=== PATIENT | female | born 1940 | race Caucasian/White ===

== ENCOUNTER 2022-05-01 21:31 | Inpatient (IN) | payer MEDICARE ==
[~2022-05-01] VITALS: Ht 149.9 cm; Wt 59.0 kg
[2022-05-01] MEDS ORDERED: IV NORMAL SALINE 500 ML BAG IV ONE (21:45)
[2022-05-01] MEDS ORDERED: MORPHINE SULFATE 4 MG/1 ML DISP.SYRIN IV ONE (22:00)
[2022-05-01 22:01] LABS: HEMATOCRIT 40.7 % (31.2-41.9); MEAN CORPUSCULAR VOLUME 78.9 fL (75.5-95.3); PLATELET COUNT (AUTO) 381 K/uL (179-408)
[2022-05-01] MEDS ORDERED: MORPHINE SULFATE 4 MG/1 ML DISP.SYRIN ONE (22:02)
[2022-05-01 22:19] LABS: CARBON DIOXIDE 27 mmol/L (21-32); CHLORIDE 102 mmol/L (98-107); CREATININE 0.5 mg/dL (0.6-1.3); GLUCOSE 165 mg/dL (74-106); POTASSIUM 3.8 mmol/L (3.5-5.1); UREA NITROGEN, BLOOD 10 mg/dL (7-18)
[2022-05-01 22:25] LABS: ALANINE AMINOTRANSFERASE 31 U/L (14-59); ALKALINE PHOSPHATASE 137 U/L (50-136); ASPARTATE AMINOTRANSFERASE 27 U/L (15-37); BILIRUBIN,TOTAL 0.3 mg/dL (0.2-1.0); TOTAL PROTEIN, SERUM 7.2 g/dL (6.4-8.2)
[2022-05-01] MEDS ORDERED: MORPHINE SULFATE 2 MG/1 ML DISP.SYRIN ONE (23:44)
[2022-05-01] MEDS ORDERED: MORPHINE SULFATE 2 MG/1 ML DISP.SYRIN IV ONE (23:45)
[2022-05-02] MEDS ORDERED: ONDANSETRON 4 MG/2 ML VIAL IV PRN (00:30)
[2022-05-02] MEDS ORDERED: ACETAMINOPHEN 325 MG TABLET PO PRN (00:30)
[2022-05-02] MEDS ORDERED: hydrALAZINE HCL 20 MG/1 ML VIAL IV PRN (00:30)
[2022-05-02] MEDS ORDERED: IV NS 1000 ML 1,000 ML IV SCH (00:30)
[2022-05-02] MEDS ORDERED: hydrALAZINE HCL 20 MG/1 ML VIAL IV ONE (01:15)
[2022-05-02] MEDS ORDERED: FENTANYL CITRATE 100 MCG/2 ML AMPUL ONE ×2 (01:54→13:36)
[2022-05-02] MEDS ORDERED: FENTANYL CITRATE 100 MCG/2 ML AMPUL IV PRN (02:00)
[2022-05-02] MEDS: MORPHINE SULFATE 2 MG/1 ML DISP.SYRIN IVP PRN ×2 (03:52→07:48)
[2022-05-02 04:00] VITALS: BP 158/86
[2022-05-02] MEDS ORDERED: MORPHINE SULFATE 2 MG/1 ML DISP.SYRIN IVP PRN (11:00)
[2022-05-02] MEDS ORDERED: VANCOMYCIN 1000 MG VIAL ONE (11:45)
[2022-05-02] MEDS ORDERED: BUPIVACAINE PF 0.5% 30 ML VIAL ONE ×2 (11:49→13:36)
[2022-05-02] MEDS ORDERED: IV D5 1/2 NS 1000 ML 1,000 ML IV PRN (12:15)
[2022-05-02] MEDS ORDERED: DEXTROSE 50% 50 ML DISP.SYRIN IV PRN (12:15)
[2022-05-02] MEDS ORDERED: METOCLOPRAMIDE HCL 10 MG/2 ML VIAL ONE (13:00)
[2022-05-02] MEDS ORDERED: CEFAZOLIN 1 G VIAL ONE ×2 (13:00)
[2022-05-02] MEDS ORDERED: PROPOFOL 200 MG/20 ML BOTTLE ONE (13:00)
[2022-05-02] MEDS ORDERED: DEXAMETHASONE SOD PHOSPHATE 4 MG INJ ONE (13:00)
[2022-05-02] MEDS ORDERED: GLYCOPYRROLATE 0.2 MG/ML VIAL ONE (13:00)
[2022-05-02] MEDS ORDERED: ONDANSETRON 4 MG/2 ML VIAL ONE (13:00)
[2022-05-02] MEDS ORDERED: LIDOCAINE-MPF 2% 5 ML VIAL ONE ×2 (13:00)
[2022-05-02] MEDS ORDERED: PHENYLEPHRINE 10 MG/1 ML VIAL ONE (13:00)
[2022-05-02] MEDS ORDERED: ALBUTEROL SULFATE 8 GM HFA.AER.AD ONE (13:31)
[2022-05-02] MEDS ORDERED: MINERAL OIL/PETROLAT OPHT OINT 3.5 GM TUBE ONE (13:35)
[2022-05-02] MEDS ORDERED: FAMOTIDINE. 20 MG/2 ML VIAL IV ONE (13:36)
[2022-05-02] MEDS ORDERED: ROCURONIUM BROMIDE 50 MG/5 ML VIAL ONE (13:36)
[2022-05-02] MEDS ORDERED: SEVOFLURANE 250 ML BOTTLE ONE (14:07)
[2022-05-02] MEDS ORDERED: TRANEXAMIC ACID 1,000 MG/10 ML VIAL ONE (14:12)
[2022-05-02] MEDS ORDERED: MAGNESIUM SULFATE/D5W 200 ML ONE (14:17)
[2022-05-02] MEDS: BLOOD SUGAR DIAGNOSTIC 1 EACH STRIP VI SCH ×2 (17:23→20:47)
[2022-05-02] MEDS: INSULIN REGULAR, HUMAN 300 UNIT/3 ML VIAL SQ PRN ×2 (17:27→20:50)
[2022-05-02] MEDS: IV D5W-0.45% NS +20 KCL 1,000 ML IV PRN (17:29)
[2022-05-02] MEDS: MORPHINE SULFATE 4 MG/1 ML DISP.SYRIN IV PRN (18:24)
[2022-05-02 20:00] VITALS: BP 130/49
[2022-05-02] MEDS: CEFAZOLIN 1 G in IV DEXTROSE 5% 50 ML IV SCH (21:07)
[2022-05-03 04:00] VITALS: BP 137/42
[2022-05-03] MEDS: IV D5W-0.45% NS +20 KCL 1,000 ML IV PRN (04:35)
[2022-05-03] MEDS: CEFAZOLIN 1 G in IV DEXTROSE 5% 50 ML IV SCH (05:46)
[2022-05-03] MEDS: MORPHINE SULFATE 4 MG/1 ML DISP.SYRIN IV PRN ×3 (05:49→17:43)
[2022-05-03 06:27] LABS: MEAN CORPUSCULAR HEMOGLOBIN 24.6 uug (24.7-32.8); MEAN CORPUSCULAR VOLUME 78.9 fL (75.5-95.3); PLATELET COUNT (AUTO) 313 K/uL (179-408)
[2022-05-03 06:34] LABS: ALANINE AMINOTRANSFERASE 23 U/L (14-59); ALKALINE PHOSPHATASE 112 U/L (50-136); ASPARTATE AMINOTRANSFERASE 29 U/L (15-37); BILIRUBIN,TOTAL 0.2 mg/dL (0.2-1.0); CARBON DIOXIDE 24 mmol/L (21-32); CHLORIDE 103 mmol/L (98-107); CREATININE 0.5 mg/dL (0.6-1.3); GLUCOSE 158 mg/dL (74-106); PHOSPHOROUS 2.7 mg/dL (2.5-4.9); POTASSIUM 4.1 mmol/L (3.5-5.1); TOTAL PROTEIN, SERUM 6.1 g/dL (6.4-8.2); UREA NITROGEN, BLOOD 9 mg/dL (7-18)
[2022-05-03] MEDS: BLOOD SUGAR DIAGNOSTIC 1 EACH STRIP VI SCH ×4 (07:07→21:04)
[2022-05-03] MEDS: INSULIN REGULAR, HUMAN 300 UNIT/3 ML VIAL SQ PRN ×4 (07:45→21:02)
[2022-05-03] MEDS: HEPARIN SODIUM,PORCINE 5,000 UNITS/ML VIAL SQ SCH ×2 (08:29→21:04)
[2022-05-03 11:49] VITALS: BP 148/51
[2022-05-03 16:00] VITALS: BP 136/48
[2022-05-03] MEDS: HYDROCODONE/APAP 10-325 MG TABLET PO PRN ×2 (18:39→23:31)
[2022-05-03 20:00] VITALS: BP 152/49
[2022-05-04] MEDS: MORPHINE SULFATE 4 MG/1 ML DISP.SYRIN IV PRN ×3 (02:25→11:22)
[2022-05-04 04:00] VITALS: BP 166/63
[2022-05-04 06:00] VITALS: BP 144/48
[2022-05-04] MEDS: BLOOD SUGAR DIAGNOSTIC 1 EACH STRIP VI SCH ×2 (07:02→11:30)
[2022-05-04] MEDS: HEPARIN SODIUM,PORCINE 5,000 UNITS/ML VIAL SQ SCH (08:45)
[2022-05-04 12:00] VITALS: BP 148/61
[2022-05-04] MEDS ORDERED: Morphine Sulfate Inj IV (12:01)
[2022-05-04] MEDS ORDERED: HEPA50007 SQ (12:01)
[2022-05-04] MEDS ORDERED: HYDR-3980 PO (12:01)
[2022-05-04] MEDS ORDERED: INSU100V7 SQ (12:01)
[2022-05-04] MEDS ORDERED: ONDA4VIA23 IV (12:01)
[2022-05-04] MEDS: HYDROCODONE/APAP 10-325 MG TABLET PO PRN (13:32)
[2022-05-04] MEDS: INSULIN REGULAR, HUMAN 300 UNIT/3 ML VIAL SQ PRN (13:32)
[2022-05-04] MEDS ORDERED: ACET-2154 PO (15:52)
[2022-05-04] MEDS ORDERED: HYDR-4075 PO (15:53)
[2022-05-04 16:00] VITALS: BP 139/53
[2022-05-04] MEDS ORDERED: ROSU20TA32 PO (16:12)
[2022-05-04] MEDS ORDERED: CARV12.52 PO (16:12)
[2022-05-04] MEDS ORDERED: PRIM50TA27 PO (16:12)
[2022-05-04] MEDS ORDERED: LORA-258 PO (16:12)
[2022-05-04] MEDS ORDERED: CLOP75TA15 PO (16:12)
[2022-05-04] MEDS ORDERED: OLME20TA13 PO (16:12)
[2022-05-04] MEDS ORDERED: PROP40TA7 PO (16:12)
[2022-05-04] MEDS ORDERED: HYDR-3972 PO (16:12)
[2022-05-04] MEDS ORDERED: ESCI20TA PO (16:12)
[2022-05-04] MEDS ORDERED: AMLO10TA59 PO (16:12)
== END 2022-05-04 14:13 | DRG 522 ==
LOC: ER 21:31 → MEDSURG3 05-02 00:40
PROVIDERS: ADMIT Internal Medicine; ATTEND Nurse Practitioner Acute Care
PROC: 0SRS0JA Replacement of Left Hip Joint, Femoral Surface with Synthetic Substitute, Uncemented, Open Approach (ICD-10-PCS; principal; 2022-05-02)
DX: S72.032A Displaced midcervical fracture of left femur, initial encounter for closed fracture (principal); M32.9 Systemic lupus erythematosus, unspecified; W01.0XXA Fall on same level from slipping, tripping and stumbling without subsequent striking against object, initial encounter; Y92.010 Kitchen of single-family (private) house as the place of occurrence of the external cause; I25.10 Atherosclerotic heart disease of native coronary artery without angina pectoris; I10 Essential (primary) hypertension; E66.9 Obesity, unspecified; E78.5 Hyperlipidemia, unspecified; E11.9 Type 2 diabetes mellitus without complications; Z95.5 Presence of coronary angioplasty implant and graft; Z20.822 Contact with and (suspected) exposure to COVID-19; Z74.09 Other reduced mobility
CPT/HCPCS: 36415; 70450; 71045; 72125; 73501; 73521; 73551; 84100; 84484; 85025; 85730; 93005; 93307; A4649; A6213; C1776; G0378; J0360; J0690; J1100; J1644; J1815; J2270; J2370; J2405; J2765; J3010; J3370; J3475; J3490; J3535; J7040; J7120

== ENCOUNTER 2022-05-03 13:49 | Inpatient (IN) | payer MEDICARE ==
[~2022-05-03] VITALS: Ht 149.9 cm; Wt 59.0 kg
[2022-05-04] MEDS ORDERED: HYDR-3980 PO (12:01)
[2022-05-04] MEDS ORDERED: INSU100V7 SQ (12:01)
[2022-05-04] MEDS ORDERED: Morphine Sulfate Inj IV (12:01)
[2022-05-04] MEDS ORDERED: ONDA4VIA23 IV (12:01)
[2022-05-04] MEDS ORDERED: HEPA50007 SQ (12:01)
[2022-05-04] MEDS ORDERED: ACET-2154 PO (15:52)
[2022-05-04] MEDS ORDERED: HYDR-4075 PO (15:53)
[2022-05-04] MEDS ORDERED: DEXTROSE 50% 50 ML DISP.SYRIN IV PRN (16:00)
[2022-05-04] MEDS ORDERED: PROP40TA7 PO (16:12)
[2022-05-04] MEDS ORDERED: ESCI20TA PO (16:12)
[2022-05-04] MEDS ORDERED: LORA-258 PO (16:12)
[2022-05-04] MEDS ORDERED: CARV12.52 PO (16:12)
[2022-05-04] MEDS ORDERED: ROSU20TA32 PO (16:12)
[2022-05-04] MEDS ORDERED: CLOP75TA15 PO (16:12)
[2022-05-04] MEDS ORDERED: AMLO10TA59 PO (16:12)
[2022-05-04] MEDS ORDERED: PRIM50TA27 PO (16:12)
[2022-05-04] MEDS ORDERED: HYDR-3972 PO (16:12)
[2022-05-04] MEDS ORDERED: OLME20TA13 PO (16:12)
[2022-05-04] MEDS: BLOOD SUGAR DIAGNOSTIC 1 EACH STRIP VI SCH ×2 (16:30→20:59)
--- NOTE | 2022-05-04 17:43 | NUR ---
verbal order obtained from dr whiteside for OxyContin 10mg every six hours, read back the order and made sure that its OxyContin 10mg every six hour scheduled and oxy ir 15mg every six hours as needed for pain.
[2022-05-04] MEDS ORDERED: NALOXONE HCL 0.4 MG/ML AMPUL IV PRN (17:45)
[2022-05-04] MEDS ORDERED: OXYCODONE HCL 10 MG TAB.SR.12H PO SCH (18:00)
--- NOTE | 2022-05-04 18:00 | NUR ---
pt was discharge from med surg and re admit in ARU.
[2022-05-04] MEDS: INSULIN REGULAR, HUMAN 300 UNIT/3 ML VIAL SQ PRN ×2 (18:06→21:17)
--- NOTE | 2022-05-04 18:08 | NUR ---
changed OxyContin 10mg every 8 hours as ordered by dr whiteside
--- NOTE | 2022-05-04 19:30 | NUR ---
buttock on elia buttocks noted . pt states she scratch it. wound care consult order. applied zuard and optiform for protection.
[2022-05-04 20:18] VITALS: BP 133/56
[2022-05-04] MEDS: DOCUSATE SODIUM 100 MG CAPSULE PO SCH (20:54)
[2022-05-04] MEDS: OXYCODONE HCL 10 MG TAB.SR.12H PO SCH (21:13)
[2022-05-04] MEDS: MIRALAX 17 GM POWD.PACK PO SCH (21:21)
[2022-05-05 04:00] VITALS: BP 140/65
[2022-05-05] MEDS: OXYCODONE HCL 10 MG TAB.SR.12H PO SCH ×3 (05:44→21:04)
--- NOTE | 2022-05-05 05:57 | NUR ---
AAOx3-4 All needs attended and met. VSS No acute distress noted. Left hip dressing intact. Pain meds givens as scheduled. Tolerated well. Incontinent of bowel and bladder. No BM this shift. Kept comfortable. Fall precautions maintained.
[2022-05-05] MEDS: BLOOD SUGAR DIAGNOSTIC 1 EACH STRIP VI SCH ×4 (06:32→21:04)
--- NOTE | 2022-05-05 07:35 | NUR ---
Incontinent of urine. Kept clean and dry. Offered purewick, patient refused.
[2022-05-05 08:00] VITALS: BP 115/61
[2022-05-05] MEDS: INSULIN REGULAR, HUMAN 300 UNIT/3 ML VIAL SQ PRN ×3 (08:18→16:56)
[2022-05-05] MEDS: DOCUSATE SODIUM 100 MG CAPSULE PO SCH ×2 (08:19→20:56)
[2022-05-05] MEDS: MIRALAX 17 GM POWD.PACK PO SCH (08:19)
[2022-05-05] MEDS: OXYCODONE HCL 5 MG TABLET PO PRN ×2 (08:27→15:14)
[2022-05-05] MEDS: PRIMIDONE 50 MG TABLET PO SCH (15:07)
[2022-05-05 15:39] VITALS: BP 125/59
[2022-05-05] MEDS: PROPRANOLOL HCL 40 MG TABLET PO SCH (16:35)
[2022-05-05] MEDS: CARVEDILOL 6.25 MG TABLET PO SCH (17:02)
[2022-05-05 20:00] VITALS: BP 126/49
[2022-05-05] MEDS: HEPARIN SODIUM,PORCINE 5,000 UNITS/ML VIAL SQ SCH (20:53)
[2022-05-05] MEDS: INSULIN GLARGINE,HUM 300 UNITS/3 ML CARTRIDGE SQ SCH (20:54)
[2022-05-05] MEDS: ESCITALOPRAM OXALATE 10 MG TABLET PO SCH (20:56)
[2022-05-05] MEDS: ATORVASTATIN 40 MG TABLET PO SCH (20:56)
[2022-05-06 04:00] VITALS: BP 150/44
[2022-05-06 05:18] LABS: *BLOOD, URINE NEGATIVE (NEGATIVE); *CLARITY,URINE CLEAR (CLEAR); *COLOR,URINE YELLOW (YELLOW); *KETONES,URINE TRACE (NEGATIVE); *UROBILINOGEN,URINE 0.2 E.U./dl (NORMAL); LEUKOCYTE ESTERASE ,URINE NEGATIVE (NEGATIVE); NITRITE, URINE NEGATIVE (NEGATIVE); PH,URINE 5.5 (5.0-8.0); UGLUCOSE NEGATIVE (NEGATIVE)
[2022-05-06 05:19] LABS: *BILIRUBIN,URIN 1+ (NEGATIVE)
[2022-05-06] MEDS: OXYCODONE HCL 10 MG TAB.SR.12H PO SCH (06:33)
[2022-05-06 06:49] LABS: HEMATOCRIT 33.4 % (31.2-41.9); MEAN CORPUSCULAR HEMOGLOBIN 24.6 uug (24.7-32.8); MEAN CORPUSCULAR VOLUME 79.3 fL (75.5-95.3); PLATELET COUNT (AUTO) 301 K/uL (179-408)
[2022-05-06] MEDS: BLOOD SUGAR DIAGNOSTIC 1 EACH STRIP VI SCH ×4 (06:54→20:53)
--- NOTE | 2022-05-06 07:25 | NUR ---
REPORT GIVEN TO KASSANDRA MEJÍA
[2022-05-06 07:26] VITALS: BP 152/50
[2022-05-06 07:38] LABS: CARBON DIOXIDE 28 mmol/L (21-32); CHLORIDE 100 mmol/L (98-107); CREATININE 0.6 mg/dL (0.6-1.3); GLUCOSE 146 mg/dL (74-106); MAGNESIUM 1.5 mg/dL (1.8-2.4); PHOSPHOROUS 4.3 mg/dL (2.5-4.9); POTASSIUM 4.6 mmol/L (3.5-5.1); UREA NITROGEN, BLOOD 24 mg/dL (7-18)
[2022-05-06] MEDS: DOCUSATE SODIUM 100 MG CAPSULE PO SCH ×2 (08:09→20:54)
[2022-05-06] MEDS: MIRALAX 17 GM POWD.PACK PO SCH (08:09)
[2022-05-06] MEDS: PRIMIDONE 50 MG TABLET PO SCH ×2 (08:10→16:31)
[2022-05-06] MEDS: AMLODIPINE 5 MG TABLET PO SCH (08:10)
[2022-05-06] MEDS: CARVEDILOL 6.25 MG TABLET PO SCH ×2 (08:10→18:23)
[2022-05-06] MEDS: CLOPIDOGREL 75 MG TABLET PO SCH (08:10)
[2022-05-06] MEDS: PROPRANOLOL HCL 40 MG TABLET PO SCH ×2 (08:10→16:31)
[2022-05-06] MEDS: HEPARIN SODIUM,PORCINE 5,000 UNITS/ML VIAL SQ SCH ×2 (08:13→20:55)
[2022-05-06] MEDS: INSULIN REGULAR, HUMAN 300 UNIT/3 ML VIAL SQ PRN ×3 (08:14→20:58)
[2022-05-06] MEDS: OXYCODONE HCL 5 MG TABLET PO PRN ×2 (10:02→18:48)
--- NOTE | 2022-05-06 10:11 | NUR ---
Notified Qamar Ramirez NP of the UA results. He is now aware.
[2022-05-06] MEDS ORDERED: MAGNESIUM OXIDE 400 MG TABLET PO ONE (11:00)
--- NOTE | 2022-05-06 11:32 | NUR ---
Pt is still downstairs with PT at this time. Will check her blood sugar as soon as she returns.
[2022-05-06] MEDS ORDERED: NALOXONE HCL 0.4 MG/ML AMPUL IV PRN (13:00)
--- NOTE | 2022-05-06 13:25 | NUR ---
WOUND CARE CONSULT: PT PRESENTS WITH MOISTURE ASSOCIATED SKIN DAMAGE TO BUTTOCKS, PRESENT ON ADMISSION. RECOMMENDATIONS MADE FOR SKIN CARE AND PROTECTION. DISCUSSED WITH NURSING STAFF. IN AGREEMENT WITH PLAN OF CARE. Addendum: 05/06/22 at 1326 by CRISTOPHER GAN RN Amended: Links added.
[2022-05-06] MEDS ORDERED: REMEDY ESSENTIAL ZINC PASTE 113 GM TOP PRN (13:30)
--- NOTE | 2022-05-06 13:45 | NUR ---
Pt's 2 friends at bedside, stated they are concerned pt isn't being bathed enough. Per Wound Care Nurse Sophy, she wiped the patient's back with a clean towel and showed the friends that the pt was not dirty. I assured them the pt is being cleaned properly. I added that the pt has been in a lot of pain. One friend suggested I not listen to the pt when she says she is in pain. I informed her that pain is whatever a pt says it is. She verbalized understanding. I called Es, PT/OT and scheduled a chair shower for tomorrow mid morning.
[2022-05-06] MEDS: REMEDY ESSENTIAL ZINC PASTE 113 GM TOP SCH ×2 (13:59→21:08)
[2022-05-06] MEDS: OXYCODONE HCL 20 MG TAB.SR.12H PO SCH ×2 (14:39→22:00)
[2022-05-06 15:18] VITALS: BP 109/49
[2022-05-06 20:30] VITALS: BP 104/35
[2022-05-06] MEDS: ATORVASTATIN 40 MG TABLET PO SCH (20:54)
[2022-05-06] MEDS: ESCITALOPRAM OXALATE 10 MG TABLET PO SCH (20:54)
[2022-05-06] MEDS: INSULIN GLARGINE,HUM 300 UNITS/3 ML CARTRIDGE SQ SCH (21:07)
[2022-05-07 04:25] VITALS: BP 157/49
[2022-05-07] MEDS: OXYCODONE HCL 20 MG TAB.SR.12H PO SCH ×3 (05:17→21:20)
--- NOTE | 2022-05-07 06:48 | NUR ---
Slept intermittently, easy to arouse alert and able to relate needs to staff. Refused to take oxycodone due @ 2200, stated "I don't need it for now". Offered dulcolax suppository, she also refused. Abduction pillow in placed. Left hip incision dressing dry and intact. Needs assessed and attended to.
[2022-05-07] MEDS: BLOOD SUGAR DIAGNOSTIC 1 EACH STRIP VI SCH ×4 (07:39→21:26)
[2022-05-07 07:42] LABS: CARBON DIOXIDE 30 mmol/L (21-32); CHLORIDE 98 mmol/L (98-107); CREATININE 0.5 mg/dL (0.6-1.3); GLUCOSE 133 mg/dL (74-106); MAGNESIUM 1.6 mg/dL (1.8-2.4); POTASSIUM 4.6 mmol/L (3.5-5.1); UREA NITROGEN, BLOOD 34 mg/dL (7-18)
[2022-05-07 07:49] VITALS: BP 138/40
[2022-05-07] MEDS: INSULIN REGULAR, HUMAN 300 UNIT/3 ML VIAL SQ PRN ×3 (07:56→21:29)
[2022-05-07] MEDS: CARVEDILOL 6.25 MG TABLET PO SCH ×2 (08:00→17:14)
[2022-05-07] MEDS: PROPRANOLOL HCL 40 MG TABLET PO SCH ×2 (09:00→17:14)
[2022-05-07] MEDS: MAGNESIUM OXIDE 400 MG TABLET PO SCH ×2 (09:08→17:14)
[2022-05-07] MEDS: MIRALAX 17 GM POWD.PACK PO SCH (09:08)
[2022-05-07] MEDS: CLOPIDOGREL 75 MG TABLET PO SCH (09:08)
[2022-05-07] MEDS: OXYCODONE HCL 5 MG TABLET PO PRN (09:09)
[2022-05-07] MEDS: PRIMIDONE 50 MG TABLET PO SCH ×2 (09:09→17:14)
[2022-05-07] MEDS: DOCUSATE SODIUM 100 MG CAPSULE PO SCH ×2 (09:10→21:17)
[2022-05-07] MEDS: HEPARIN SODIUM,PORCINE 5,000 UNITS/ML VIAL SQ SCH ×2 (09:12→21:35)
--- NOTE | 2022-05-07 09:16 | NUR ---
INDIVIDUALIZED PLAN OF CARE
[2022-05-07] MEDS: AMLODIPINE 5 MG TABLET PO SCH (09:20)
[2022-05-07] MEDS: REMEDY ESSENTIAL ZINC PASTE 113 GM TOP SCH ×2 (09:32→21:17)
[2022-05-07 15:33] VITALS: BP 137/42
--- NOTE | 2022-05-07 17:00 | NUR ---
RECEIVED REPORT FROM KASSANDRA CELAYA, NOC SHIFT RN. PATIENT IS ALERT & ORIENTED X4, AND ABLE TO SPEAK MALAYSIAN. VITAL SIGNS STABLE. PATIENT PARTICIPATES WITH PHYSICAL THERAPY AND OCCUPATIONAL THERAPY PER SCHEDULED. PATIENT TOLERATES PO MEDICATIONS AND DIET WELL. PATIENT HAS COMPLAINT OF PAIN. RN GAVE MEDICATIONS ORDERED BY MD. PATIENT EXPRESSED A RELIEF OF SOME PAIN. PATIENT'S VISITED. SHOWER COMPLETED. CALL LIGHT WITHIN REACH. FALL PRECAUTIONS OBSERVED. ALL NEEDS MET AT THIS TIME. AT 1700, RN ENDORSED CARE TO KASSANDRA ALLEN, FOR CONTINUATION OF CARE PER NUCLEAR POWERPLANT MECHANIC REQUEST.
[2022-05-07] MEDS: GLUCERNA SHAKE 237 ML CAN PO SCH (17:15)
--- NOTE | 2022-05-07 17:56 | NUR ---
1700-Patient was endorsed to me at this time. Upon rounds patient is in bed, awake. A/ox4, able to make self understood and follow directions. Patient denies pain at this time. No s/s of hypo/HTN or hypo/hyperglycemia noted. FS for BS checks done as ordered by MD. SS insulin coverage administered as indicated. Encouraged patient to use call light for help every time needed with good understanding.
--- NOTE | 2022-05-07 19:16 | NUR ---
Patient in stable conditions, resting in bed, awake and watching tv. denies pain. Assist as needed. Needs anticipated and met. Bedside table at reach with all needed items in place. Call light within reach, report given to NOC clive RN.
[2022-05-07] MEDS: ESCITALOPRAM OXALATE 10 MG TABLET PO SCH (21:17)
[2022-05-07] MEDS: ATORVASTATIN 40 MG TABLET PO SCH (21:17)
[2022-05-07] MEDS: INSULIN GLARGINE,HUM 300 UNITS/3 ML CARTRIDGE SQ SCH (21:31)
[2022-05-08 04:00] VITALS: BP 143/45
[2022-05-08] MEDS: OXYCODONE HCL 20 MG TAB.SR.12H PO SCH ×2 (05:57→13:20)
--- NOTE | 2022-05-08 05:57 | NUR ---
Awake alert and oriented x 1-2 Confused but able to follow commands. VSS No acute distress noted. Fall precautions maintained. Needs attended. Able to make needs known. Tolerated po meds well. Kept comfortable. Incontinent of urine x2. Kept clean and dry. No BM noted this shift. Will monitor patient. Addendum: 05/08/22 at 0629 by MELL DURON RN wrong patient
--- NOTE | 2022-05-08 06:32 | NUR ---
AAOx4 All needs attended. Left hip dressing intact, with cecilia in placed. No redness noted or swelling noted. Pain meds given as needed. VSS, Accucheck 67, OJ given. Will recheck blood sugar in 3o minutes. latest accucheck 113.
[2022-05-08] MEDS: BLOOD SUGAR DIAGNOSTIC 1 EACH STRIP VI SCH ×4 (06:47→21:18)
--- NOTE | 2022-05-08 07:54 | NUR ---
0700-Patient in bed, asleep, no s/s of respiratory distress, able to wake up on verbal commands, denies pain. Encouraged to use call light for help every time needed.
[2022-05-08] MEDS: HEPARIN SODIUM,PORCINE 5,000 UNITS/ML VIAL SQ SCH ×2 (08:50→21:29)
[2022-05-08] MEDS: CARVEDILOL 6.25 MG TABLET PO SCH ×2 (08:51→18:10)
[2022-05-08] MEDS: OXYCODONE HCL 5 MG TABLET PO PRN (08:51)
[2022-05-08] MEDS: AMLODIPINE 5 MG TABLET PO SCH (08:51)
[2022-05-08] MEDS: CLOPIDOGREL 75 MG TABLET PO SCH (08:51)
[2022-05-08] MEDS: PROPRANOLOL HCL 40 MG TABLET PO SCH ×2 (08:51→16:31)
[2022-05-08] MEDS: DOCUSATE SODIUM 100 MG CAPSULE PO SCH ×2 (08:51→21:12)
[2022-05-08] MEDS: MAGNESIUM OXIDE 400 MG TABLET PO SCH ×2 (08:51→16:31)
[2022-05-08] MEDS: MIRALAX 17 GM POWD.PACK PO SCH (08:52)
[2022-05-08] MEDS: GLUCERNA SHAKE 237 ML CAN PO SCH ×2 (08:52→17:09)
[2022-05-08] MEDS: PRIMIDONE 50 MG TABLET PO SCH ×2 (08:53→16:31)
[2022-05-08] MEDS: REMEDY ESSENTIAL ZINC PASTE 113 GM TOP SCH ×2 (09:52→21:19)
[2022-05-08 12:00] VITALS: BP 132/40
--- NOTE | 2022-05-08 12:54 | NUR ---
PATIENT SEEN AND EXAMINED BY Dr. IRIZARRY, PER MD TO DECREASE MEDICATION ORXYIR FROM 15mg Q6HRS PRN TO 10mg Q6HRS PRN. ORDER NOTED AND CARRIED OUT.
--- NOTE | 2022-05-08 13:11 | NUR ---
INTERDISCIPLINARY TEAM CONFERENCE
--- NOTE | 2022-05-08 13:35 | NUR ---
X-RAY OF LEFT HIP OBTAINED FROM Dr IRIZARRY, ROUTINE FOLLOW UP.
[2022-05-08 16:00] VITALS: BP 130/49
--- NOTE | 2022-05-08 17:42 | NUR ---
X-RAY OF LEFT HIP RESULTS REC'D AND RELAYED TO Dr. IRIZARRY WITH NO NEW ORDERS. PATIENT'S SON (OKSANA)VISITED PATIENT AND CONCERNED REGARDING PATIENT'S NARCOTIC MEDICATIONS, OKSANA'S CONCERNS WERE RELAYED TO DR. IRIZARRY AND PER DR IRIZARRY TO DECREASE OXYCONTIN FROM 20MG Q8HRS TO OXYCONTIN 10MG Q8HRS NOTED AND CARRIED OUT. DR. GARY MAKING ROUNDS AT THIS TIME, ALSO SPOKE TO OKSANA AND ADDRESSED ALL HIS CONCERNS.
[2022-05-08] MEDS ORDERED: NALOXONE HCL 0.4 MG/ML AMPUL IV PRN (17:45)
[2022-05-08] MEDS: INSULIN REGULAR, HUMAN 300 UNIT/3 ML VIAL SQ PRN ×2 (18:49→21:32)
[2022-05-08 20:00] VITALS: BP 142/47
[2022-05-08] MEDS ORDERED: BISACODYL 10 MG SUPP.RECT RC PRN (21:00)
[2022-05-08] MEDS: ATORVASTATIN 40 MG TABLET PO SCH (21:12)
[2022-05-08] MEDS: OXYCODONE HCL 10 MG TAB.SR.12H PO SCH (21:12)
[2022-05-08] MEDS: ESCITALOPRAM OXALATE 10 MG TABLET PO SCH (21:12)
[2022-05-08] MEDS: INSULIN GLARGINE,HUM 300 UNITS/3 ML CARTRIDGE SQ SCH (21:30)
[2022-05-09 04:30] VITALS: BP 146/41
--- NOTE | 2022-05-09 05:14 | NUR ---
Quiet night. AAOx3-4. All needs attended and met. VSS. Kept comfortable. Fall precautions maintained. All due meds given, Accucheck last night was 137 with coverage given. Left hip incision with cecilia intact, no redness nor swelling noted. Incontinent of urine x2. Kept clean and dry.
[2022-05-09] MEDS: OXYCODONE HCL 10 MG TAB.SR.12H PO SCH ×3 (06:08→21:55)
[2022-05-09] MEDS: BLOOD SUGAR DIAGNOSTIC 1 EACH STRIP VI SCH ×4 (06:33→20:38)
[2022-05-09 07:10] LABS: HEMATOCRIT 33.3 % (31.2-41.9); MEAN CORPUSCULAR VOLUME 79.2 fL (75.5-95.3); PLATELET COUNT (AUTO) 400 K/uL (179-408)
--- NOTE | 2022-05-09 07:52 | NUR ---
0700-Rec'd patient in bed, fully awake, alert and able to voice out needs. Patient denies pain, on R/A and sandy. well, no s/s of respiratory distress noted. Asked patient how she was doing, patient replied "great honey, thanks for asking" offered assist, patient stated to be just fine. Encouraged patient to use call light for help every time needed with good understanding.
[2022-05-09 07:56] LABS: ALANINE AMINOTRANSFERASE 14 U/L (14-59); ALKALINE PHOSPHATASE 94 U/L (50-136); ASPARTATE AMINOTRANSFERASE 17 U/L (15-37); BILIRUBIN,TOTAL 0.4 mg/dL (0.2-1.0); CARBON DIOXIDE 32 mmol/L (21-32); CHLORIDE 99 mmol/L (98-107); CHOLESTEROL 121 mg/dL (<200); CREATININE 0.5 mg/dL (0.6-1.3); GLUCOSE 90 mg/dL (74-106); HDL CHOLESTEROL 29 mg/dL (40-60); MAGNESIUM 1.4 mg/dL (1.8-2.4); PHOSPHOROUS 2.9 mg/dL (2.5-4.9); POTASSIUM 4.3 mmol/L (3.5-5.1); TRIGLYCERIDES 130 MG/DL (30-150); UREA NITROGEN, BLOOD 17 mg/dL (7-18)
[2022-05-09] MEDS: DOCUSATE SODIUM 100 MG CAPSULE PO SCH ×2 (08:41→20:28)
[2022-05-09] MEDS: PROPRANOLOL HCL 40 MG TABLET PO SCH ×2 (08:42→16:11)
[2022-05-09] MEDS: HEPARIN SODIUM,PORCINE 5,000 UNITS/ML VIAL SQ SCH ×2 (08:42→20:42)
[2022-05-09] MEDS: PRIMIDONE 50 MG TABLET PO SCH ×2 (08:42→16:11)
[2022-05-09] MEDS: MIRALAX 17 GM POWD.PACK PO SCH (08:43)
[2022-05-09] MEDS: AMLODIPINE 5 MG TABLET PO SCH (08:43)
[2022-05-09] MEDS: CARVEDILOL 6.25 MG TABLET PO SCH ×2 (08:43→18:15)
[2022-05-09] MEDS: GLUCERNA SHAKE 237 ML CAN PO SCH ×2 (08:43→17:08)
[2022-05-09] MEDS: CLOPIDOGREL 75 MG TABLET PO SCH (08:43)
[2022-05-09] MEDS: REMEDY ESSENTIAL ZINC PASTE 113 GM TOP SCH ×2 (08:44→20:33)
[2022-05-09 09:08] LABS: THYROID STIMULATING HORMONE 1.428 mIU/mL (0.358-3.740)
[2022-05-09] MEDS: OXYCODONE HCL 5 MG TABLET PO PRN (09:48)
[2022-05-09] MEDS ORDERED: LACTULOSE 20 G/30 ML LIQUID UDC PO PRN (10:00)
[2022-05-09] MEDS: MAGNESIUM OXIDE 400 MG TABLET PO SCH ×2 (10:12→14:17)
[2022-05-09] MEDS: BISACODYL 10 MG SUPP.RECT RC PRN (17:07)
[2022-05-09 17:20] LABS: NEUTROPHILS % (MANUAL) 0 % (42-75)
--- NOTE | 2022-05-09 17:49 | NUR ---
0900-Scheduled medications administered as ordered. No ASE noted. Oral fluids encouraged as sandy. and taken well. 1000-Patient c/o having a difficult time to go BM. Abdomen is distended with BS (+) in all quadrants, patient denies pain. Informed Dr. Lopez and obtained orders for Lactulose 30ml QD PRN. and administered. Will monitor. 1710-Patient has not had a BM yet. Administered a rectal suppository PRN. tolerated well procedure. 1750-Patient with BM results, care provided. Repositioned to promote comfort and facilitate pressure relief.
[2022-05-09 20:00] VITALS: BP 153/50
[2022-05-09] MEDS: ESCITALOPRAM OXALATE 10 MG TABLET PO SCH (20:28)
[2022-05-09] MEDS: INSULIN GLARGINE,HUM 300 UNITS/3 ML CARTRIDGE SQ SCH (20:43)
[2022-05-09] MEDS: ATORVASTATIN 10 MG TABLET PO SCH (21:00)
--- NOTE | 2022-05-09 21:57 | NUR ---
Atorvastatin 10 mg not given, Atorvastatin 40 mg given already may start Atorvastatin 10 mg tomorrow night.
[2022-05-10 03:40] VITALS: BP 176/63
--- NOTE | 2022-05-10 04:44 | NUR ---
Condition unchanged. AAOx2-3 forgetful at times. Needs attended. Fall precautions maintained. Tolerated po meds. Will monitor patient.
[2022-05-10] MEDS: OXYCODONE HCL 10 MG TAB.SR.12H PO SCH ×3 (05:29→21:01)
[2022-05-10] MEDS: BLOOD SUGAR DIAGNOSTIC 1 EACH STRIP VI SCH ×4 (06:51→20:42)
[2022-05-10 07:49] VITALS: BP 159/55
[2022-05-10] MEDS ORDERED: CARVEDILOL 3.125 MG TABLET PO SCH (08:00)
[2022-05-10] MEDS: HEPARIN SODIUM,PORCINE 5,000 UNITS/ML VIAL SQ SCH ×2 (08:02→20:42)
[2022-05-10] MEDS: AMLODIPINE 5 MG TABLET PO SCH (08:21)
[2022-05-10] MEDS: PROPRANOLOL HCL 40 MG TABLET PO SCH (08:21)
[2022-05-10] MEDS: CLOPIDOGREL 75 MG TABLET PO SCH (08:21)
[2022-05-10] MEDS: PRIMIDONE 50 MG TABLET PO SCH ×2 (08:21→16:38)
[2022-05-10] MEDS: DOCUSATE SODIUM 100 MG CAPSULE PO SCH ×2 (08:22→20:35)
[2022-05-10] MEDS: MIRALAX 17 GM POWD.PACK PO SCH (08:22)
[2022-05-10] MEDS: GLUCERNA SHAKE 237 ML CAN PO SCH ×2 (08:22→16:40)
[2022-05-10] MEDS: REMEDY ESSENTIAL ZINC PASTE 113 GM TOP SCH ×2 (08:23→20:36)
[2022-05-10] MEDS: CARVEDILOL 12.5 MG TABLET PO SCH ×2 (09:41→18:00)
--- NOTE | 2022-05-10 15:27 | NUR ---
patient is alert, oriented x3, no sob, respirations are even nonlabored,skin warm and dry to touch, skin inspected to both heels, off load, no complication noted, repositioned every 2 hours while in bed.
[2022-05-10 16:00] VITALS: BP 143/46
[2022-05-10] MEDS: hydrALAZINE HCL 25 MG TABLET PO PRN (16:39)
[2022-05-10] MEDS ORDERED: POLYVINYL ALCOHOL OPHT DROPS 15 ML BOTTLE EACHEYE PRN (17:30)
[2022-05-10 20:14] VITALS: BP 156/49
[2022-05-10 20:24] LABS: *BLOOD, URINE NEGATIVE (NEGATIVE); *CLARITY,URINE CLEAR (CLEAR); *COLOR,URINE YELLOW (YELLOW); *KETONES,URINE 3+ (NEGATIVE); LEUKOCYTE ESTERASE ,URINE 1+ (NEGATIVE); NITRITE, URINE NEGATIVE (NEGATIVE); UGLUCOSE NEGATIVE (NEGATIVE)
[2022-05-10] MEDS: ATORVASTATIN 10 MG TABLET PO SCH (20:35)
[2022-05-10] MEDS: ESCITALOPRAM OXALATE 10 MG TABLET PO SCH (20:35)
[2022-05-10] MEDS: INSULIN GLARGINE,HUM 300 UNITS/3 ML CARTRIDGE SQ SCH (20:41)
[2022-05-10 21:07] LABS: *BILIRUBIN,URIN 1+ (NEGATIVE)
[2022-05-10 21:15] LABS: BACTERIA,URINE MODERATE /HPF (NONE SEEN); RBC,URINE 0-3 /HPF (0-3)
[2022-05-10 21:16] LABS: SQUAMOUS EPITHELIAL CELL,UR MODERATE /HPF (NONE SEEN)
[2022-05-10 21:17] LABS: URIC ACID CRYSTALS,URINE FEW /HPF (NONE SEEN)
[2022-05-10] MEDS: CEphaleXIN 500 MG CAPSULE PO SCH (22:11)
--- NOTE | 2022-05-10 23:15 | NUR ---
Left hip incision site dressing changed, cecilia are intact, no redness noted, well approximated, dry and clean.
[2022-05-11 04:25] VITALS: BP 171/65
[2022-05-11] MEDS: CEphaleXIN 500 MG CAPSULE PO SCH ×3 (05:05→22:28)
[2022-05-11] MEDS: OXYCODONE HCL 10 MG TAB.SR.12H PO SCH ×3 (05:06→22:27)
[2022-05-11] MEDS: hydrALAZINE HCL 25 MG TABLET PO PRN (05:06)
[2022-05-11] MEDS: BLOOD SUGAR DIAGNOSTIC 1 EACH STRIP VI SCH (05:19)
[2022-05-11 07:40] VITALS: BP 156/62
[2022-05-11] MEDS: GLUCERNA SHAKE 237 ML CAN PO SCH ×3 (08:00→16:50)
[2022-05-11] MEDS: CARVEDILOL 12.5 MG TABLET PO SCH (08:54)
[2022-05-11] MEDS: PRIMIDONE 50 MG TABLET PO SCH ×2 (08:54→16:50)
[2022-05-11] MEDS: DOCUSATE SODIUM 100 MG CAPSULE PO SCH ×2 (08:55→20:58)
[2022-05-11] MEDS: CLOPIDOGREL 75 MG TABLET PO SCH (08:55)
[2022-05-11] MEDS: MIRALAX 17 GM POWD.PACK PO SCH (08:56)
[2022-05-11] MEDS: HEPARIN SODIUM,PORCINE 5,000 UNITS/ML VIAL SQ SCH ×2 (08:56→21:02)
[2022-05-11] MEDS: AMLODIPINE 10 MG TABLET PO SCH (08:57)
[2022-05-11] MEDS: REMEDY ESSENTIAL ZINC PASTE 113 GM TOP SCH ×2 (09:00→21:16)
[2022-05-11] MEDS: VALSARTAN 80 MG TABLET PO SCH ×2 (10:15→20:58)
--- NOTE | 2022-05-11 11:30 | NUR ---
PT NOTE patient able to transfer to [facility] and had BM during PT treatment. RN and DIRECTOR OF CLINICAL TRIALS aware.
[2022-05-11 16:54] VITALS: BP 148/54
[2022-05-11] MEDS: OXYCODONE HCL 5 MG TABLET PO PRN (16:54)
[2022-05-11 20:00] VITALS: BP 143/59
--- NOTE | 2022-05-11 20:00 | NUR ---
NSG: Received patient lying in bed, alert, oriented x3, no sob, respirations are even and unlabored,skin warm and dry to touch, skin inspected to both heels, off load, no complication noted, repositioned every 2 hours while in bed. call light w/in reach.
[2022-05-11] MEDS: ATORVASTATIN 10 MG TABLET PO SCH (20:58)
[2022-05-11] MEDS: ESCITALOPRAM OXALATE 10 MG TABLET PO SCH (20:58)
[2022-05-11] MEDS: PROPRANOLOL HCL 40 MG TABLET PO SCH (20:59)
[2022-05-11] MEDS ORDERED: INSULIN GLARGINE,HUM 300 UNITS/3 ML CARTRIDGE SQ ONE (21:18)
[2022-05-11] MEDS: INSULIN GLARGINE,HUM 300 UNITS/3 ML CARTRIDGE SQ SCH (21:23)
[2022-05-12 04:00] VITALS: BP 146/62
--- NOTE | 2022-05-12 05:14 | NUR ---
NSG: Remain calm and cooperative with meds and care. slept well through the night.All needs attended and met. VSS. Kept comfortable.Fall precautions maintained. All due meds given. Left hip incision with cecilia intact, no redness nor swelling noted. Incontinent of urine x2. Kept clean and dry. call light w/in reach.
[2022-05-12] MEDS: OXYCODONE HCL 10 MG TAB.SR.12H PO SCH ×3 (05:38→21:07)
[2022-05-12] MEDS: CEphaleXIN 500 MG CAPSULE PO SCH ×3 (05:38→21:06)
[2022-05-12 07:16] LABS: MEAN CORPUSCULAR HEMOGLOBIN 25.3 uug (24.7-32.8); MEAN CORPUSCULAR VOLUME 78.7 fL (75.5-95.3); PLATELET COUNT (AUTO) 632 K/uL (179-408)
[2022-05-12 07:32] VITALS: BP 180/69
[2022-05-12 07:45] LABS: ALANINE AMINOTRANSFERASE 16 U/L (14-59); ALKALINE PHOSPHATASE 109 U/L (50-136); ASPARTATE AMINOTRANSFERASE 19 U/L (15-37); BILIRUBIN,TOTAL 0.5 mg/dL (0.2-1.0); CARBON DIOXIDE 25 mmol/L (21-32); CHLORIDE 94 mmol/L (98-107); CREATININE 0.4 mg/dL (0.6-1.3); GLUCOSE 149 mg/dL (74-106); MAGNESIUM 1.3 mg/dL (1.8-2.4); PHOSPHOROUS 3.3 mg/dL (2.5-4.9); POTASSIUM 4.4 mmol/L (3.5-5.1); TOTAL PROTEIN, SERUM 6.4 g/dL (6.4-8.2); UREA NITROGEN, BLOOD 16 mg/dL (7-18)
[2022-05-12 07:52] LABS: IRON, SERUM 22 ug/dL (50-175)
[2022-05-12] MEDS: CLOPIDOGREL 75 MG TABLET PO SCH (08:22)
[2022-05-12] MEDS: DOCUSATE SODIUM 100 MG CAPSULE PO SCH ×2 (08:22→20:01)
[2022-05-12] MEDS: PRIMIDONE 50 MG TABLET PO SCH ×2 (08:22→17:27)
[2022-05-12] MEDS: HEPARIN SODIUM,PORCINE 5,000 UNITS/ML VIAL SQ SCH ×2 (08:26→20:05)
[2022-05-12] MEDS: VALSARTAN 80 MG TABLET PO SCH ×2 (08:27→20:03)
[2022-05-12] MEDS: PROPRANOLOL HCL 40 MG TABLET PO SCH ×2 (08:28→20:02)
[2022-05-12] MEDS: AMLODIPINE 10 MG TABLET PO SCH (08:28)
[2022-05-12] MEDS: MIRALAX 17 GM POWD.PACK PO SCH (08:28)
[2022-05-12] MEDS: REMEDY ESSENTIAL ZINC PASTE 113 GM TOP SCH ×2 (08:29→21:02)
[2022-05-12] MEDS: GLUCERNA SHAKE 237 ML CAN PO SCH ×3 (08:34→17:27)
[2022-05-12] MEDS: MAGNESIUM SULFATE/D5W 100 ML IV SCH ×4 (10:10→13:43)
--- NOTE | 2022-05-12 10:30 | NUR ---
RIGHT HAND 20 GAUGE IV STARTED BY RN, ALEXANDER, X1 ATTEMPT. IV PATENT. IV MEDICATIONS GIVEN. PLAN OF CARE CONTINUES.
[2022-05-12 15:58] VITALS: BP 134/40
--- NOTE | 2022-05-12 19:16 | NUR ---
RECEIVED REPORT FROM MADDIE WOLF, ALANNAH SHIFT RN. PATIENT IS ALERT & ORIENTED X4, AND ABLE TO SPEAK MACEDONIAN. VITAL SIGNS STABLE. PATIENT TOLERATES PO MEDICATIONS AND DIET WELL. PATIENT HAS COMPLAINT OF PAIN. RN GAVE MEDICATIONS ORDERED BY MD. PATIENT EXPRESSED A RELIEF OF SOME PAIN. PATIENT PARTICIPATES WITH PHYSICAL AND OCCUPATIONAL THERAPY SCHEDULED. IV REMAINS PATENT. SALINE LOCKED. CALL LIGHT WITHIN REACH. FALL PRECAUTIONS OBSERVED. PATIENT'S FRIENDS AND SON VISITED PATIENT. NO ACUTE DISTRESS. ALL NEEDS MET AT THIS TIME. ENDORSED CARE TO KASSANDRA MUNOZ, ALANNAH JOSEPH FOR CONTINUATION OF CARE.
[2022-05-12] MEDS: ESCITALOPRAM OXALATE 10 MG TABLET PO SCH (20:00)
[2022-05-12] MEDS: OXYCODONE HCL 5 MG TABLET PO PRN (20:01)
[2022-05-12] MEDS: ATORVASTATIN 10 MG TABLET PO SCH (20:03)
[2022-05-12 20:45] VITALS: BP 143/42
[2022-05-12] MEDS: INSULIN GLARGINE,HUM 300 UNITS/3 ML CARTRIDGE SQ SCH (21:02)
[2022-05-13] VITALS (14 sets, daily range): BP systolic 97–137; BP diastolic 32–67
--- NOTE | 2022-05-13 04:11 | NUR ---
had a quiet noc, slept at long intervals.
[2022-05-13] MEDS: CEphaleXIN 500 MG CAPSULE PO SCH (05:16)
[2022-05-13] MEDS: OXYCODONE HCL 10 MG TAB.SR.12H PO SCH ×3 (05:16→23:31)
--- NOTE | 2022-05-13 05:57 | NUR ---
patient is alert, oriented x3, verbally responsive, no sob, respirations are even nonlabored, kept clean and dry, assisted to bedside commode, inspected heels, no issues noted, skin intact, still noted with right buttock excoriation, red, no odor, no drainage. applied foam dressing. turned and repositioned every 2 hours, reminded patient to turn on side while in bed, patient is able to turn herself and verbalized understanding of it,continue to monitor.
[2022-05-13 07:17] LABS: CARBON DIOXIDE 29 mmol/L (21-32); CHLORIDE 95 mmol/L (98-107); CREATININE 0.5 mg/dL (0.6-1.3); GLUCOSE 166 mg/dL (74-106); POTASSIUM 4.5 mmol/L (3.5-5.1); UREA NITROGEN, BLOOD 33 mg/dL (7-18)
[2022-05-13] MEDS: DOCUSATE SODIUM 100 MG CAPSULE PO SCH ×2 (08:35→21:04)
[2022-05-13] MEDS: CLOPIDOGREL 75 MG TABLET PO SCH (08:35)
[2022-05-13] MEDS: PRIMIDONE 50 MG TABLET PO SCH ×2 (08:35→16:57)
[2022-05-13] MEDS: MIRALAX 17 GM POWD.PACK PO SCH (08:37)
[2022-05-13] MEDS: GLUCERNA SHAKE 237 ML CAN PO SCH ×3 (08:37→16:57)
[2022-05-13] MEDS: HEPARIN SODIUM,PORCINE 5,000 UNITS/ML VIAL SQ SCH (08:38)
[2022-05-13] MEDS: VALSARTAN 80 MG TABLET PO SCH ×2 (08:41→21:05)
[2022-05-13] MEDS: PROPRANOLOL HCL 40 MG TABLET PO SCH ×2 (08:41→21:06)
[2022-05-13] MEDS: AMLODIPINE 10 MG TABLET PO SCH (08:42)
[2022-05-13] MEDS: REMEDY ESSENTIAL ZINC PASTE 113 GM TOP SCH ×2 (08:42→21:00)
--- NOTE | 2022-05-13 11:30 | NUR ---
OT NOTIFIES RN PATIENT WAS DIZZY AND NAUSEOUS. RN PROVIDED EMESIS BAG. PATIENT WANTED TO GET BACK TO BED AND REST. OT AND RN HELPED PATIENT BACK TO BED SAFELY. RN TOOK PATIENT BLOOD PRESSURE. PATIENT HAD BOWEL MOVEMENT. RN CLEANED UP PATIENT. STOOL COLLECTED. BLOOD PRESSURE NOTED DOCUMENTED. RN NOTIFIES DOYLE, STAMP ANALYST, AND HOSPITALITIS MD. MD ORDERS PROVIDED. RN CARRIED OUT MD ORDERS. BLOOD PRESSURES TAKEN NEEDED. PATIENT DROWSY, ABLE TO FOLLOW COMMANDS, AND EASILY AWAKEN BY NAME. NO ACUTE DISTRESS. NON-LABORED BREATHING. PROVIDED PO FLUIDS. PLAN OF CARE CONTINUES.
[2022-05-13 11:31] LABS: HEMATOCRIT 29.6 % (31.2-41.9); MEAN CORPUSCULAR HEMOGLOBIN 25.3 uug (24.7-32.8); MEAN CORPUSCULAR VOLUME 78.5 fL (75.5-95.3); PLATELET COUNT (AUTO) 594 K/uL (179-408)
--- NOTE | 2022-05-13 12:08 | NUR ---
WOUND CARE CONSULT/FOLLOW UP: PT PRESENTS WITH EXCORIATION/MOISTURE ASSOCIATED SKIN DAMAGE TO BUTTOCKS. RECOMMENDATIONS MADE FOR SKIN CARE AND PROTECTION. DISCUSSED WITH NURSING STAFF. IN AGREEMENT WITH PLAN OF CARE. Addendum: 05/13/22 at 1209 by CRISTOPHER GAN RN Amended: Links added.
[2022-05-13] MEDS: CEFTRIAXONE 1 G in IV DEXTROSE 5% 50 ML IV SCH (12:41)
[2022-05-13] MEDS: ACIDOPHILUS/BULGARICUS CHEW TAB PO SCH ×2 (12:41→21:06)
--- NOTE | 2022-05-13 14:00 | NUR ---
PATIENT COMPLAINT OF 7/10 PAIN LOCATED ON HIP. PATIENT MORE ALERT. RN TOOK BLOOD PRESSURE AND NOTED 120/45 B/P, 63 HR, AND 100% SPO2. RN NOTIFIES MAIKEL KWON RN, AND DR. ANAID MD. MD ALLOWS PATIENT TO TAKE PAIN MEDICATION. RN GAVE ADVISED. PATIENT EXPRESSED THANKFULNESS OF FOR PAIN MEDICATION.
[2022-05-13 17:11] LABS: *OCCULT BLOOD STOOL POSITIVE (NEGATIVE)
[2022-05-13] MEDS: ACETAMINOPHEN 325 MG TABLET PO PRN (18:46)
[2022-05-13] MEDS ORDERED: DEXTROSE 50% 50 ML DISP.SYRIN IV PRN (19:15)
--- NOTE | 2022-05-13 19:22 | NUR ---
RECEIVED REPORT FROM KASSANDRA MUNOZ, ALANNAH SHIFT. PATIENT IS ALERT & ORIENTED X4, AND ABLE TO SPEAK MAORI. VITAL SIGNS STABLE. PATIENT TOLERATES PO MEDICATIONS AND DIET WELL. PATIENT HAS COMPLAINT OF PAIN. RN GAVE MEDICATIONS ORDERED BY MD. PATIENT EXPRESSED A RELIEF OF SOME PAIN. PATIENT PARTICIPATES WITH MODIFIED PHYSICAL AND OCCUPATIONAL THERAPY SCHEDULED. IV REMAINS PATENT. SALINE LOCKED. OCCULT BLOOD COMPLETED. RN REPORT RESULTS TO MD. NO NEW ORDERS. CALL LIGHT WITHIN REACH. FALL PRECAUTIONS OBSERVED. WOUND CARE COMPLETED. NO ACUTE DISTRESS. ALL NEEDS MET AT THIS TIME. ENDORSED CARE TO KASSANDRA GARZA, ALANNAH SHIFT FOR CONTINUATION OF CARE.
--- NOTE | 2022-05-13 20:00 | NUR ---
recd pt in bed, alert,oriented x4, no distress noted, in good spirits. needs attended to.
[2022-05-13] MEDS: OXYCODONE HCL 5 MG TABLET PO PRN (20:05)
--- NOTE | 2022-05-13 21:00 | NUR ---
bs checked as ordered, 124,no coverage, due meds given. has vare rendered.kept warm and comfortable.
[2022-05-13] MEDS: ATORVASTATIN 10 MG TABLET PO SCH (21:01)
[2022-05-13] MEDS: ESCITALOPRAM OXALATE 10 MG TABLET PO SCH (21:02)
[2022-05-13] MEDS: BLOOD SUGAR DIAGNOSTIC 1 EACH STRIP VI SCH (22:00)
[2022-05-13] MEDS: INSULIN GLARGINE,HUM 300 UNITS/3 ML CARTRIDGE SQ SCH (22:30)
--- NOTE | 2022-05-13 23:09 | NUR ---
chest x ray done, no result yet.
--- NOTE | 2022-05-14 04:07 | NUR ---
STOOL POSITIVE FOR OB, NO DIARRHEA NOTED ON THIS SHIFT.
[2022-05-14 04:58] VITALS: BP 115/53
[2022-05-14] MEDS: OXYCODONE HCL 10 MG TAB.SR.12H PO SCH ×3 (06:52→21:33)
[2022-05-14] MEDS: BLOOD SUGAR DIAGNOSTIC 1 EACH STRIP VI SCH ×4 (06:57→20:45)
--- NOTE | 2022-05-14 07:30 | NUR ---
HAD A QUIET NOC.RESTED FAIRLY WELL/MONITORED FOR SAFETY AND COMFORT.
[2022-05-14 07:58] VITALS: BP 145/44
[2022-05-14] MEDS: VALSARTAN 80 MG TABLET PO SCH ×2 (09:03→21:32)
[2022-05-14] MEDS: DOCUSATE SODIUM 100 MG CAPSULE PO SCH ×2 (09:03→21:31)
[2022-05-14] MEDS: ACIDOPHILUS/BULGARICUS CHEW TAB PO SCH ×2 (09:03→21:32)
[2022-05-14] MEDS: PROPRANOLOL HCL 40 MG TABLET PO SCH ×2 (09:04→21:00)
[2022-05-14] MEDS: AMLODIPINE 10 MG TABLET PO SCH (09:04)
[2022-05-14] MEDS: PRIMIDONE 50 MG TABLET PO SCH ×2 (09:04→16:53)
[2022-05-14] MEDS: MIRALAX 17 GM POWD.PACK PO SCH (09:04)
[2022-05-14] MEDS: FERROUS GLUCONATE 324 MG TABLET PO SCH (09:05)
[2022-05-14] MEDS: GLUCERNA SHAKE 237 ML CAN PO SCH ×3 (09:05→17:05)
[2022-05-14] MEDS: REMEDY ESSENTIAL ZINC PASTE 113 GM TOP SCH ×2 (09:06→21:26)
[2022-05-14] MEDS: CEFTRIAXONE 1 G in IV DEXTROSE 5% 50 ML IV SCH (11:58)
[2022-05-14] MEDS: INSULIN REGULAR, HUMAN 300 UNIT/3 ML VIAL SQ PRN ×2 (11:59→16:40)
[2022-05-14 15:17] LABS: HEMATOCRIT 23.7 % (31.2-41.9); MEAN CORPUSCULAR HEMOGLOBIN 25.6 uug (24.7-32.8); MEAN CORPUSCULAR VOLUME 78.7 fL (75.5-95.3); PLATELET COUNT (AUTO) 602 K/uL (179-408)
[2022-05-14 15:34] LABS: BILIRUBIN,TOTAL 0.2 mg/dL (0.2-1.0); CREATININE 0.8 mg/dL (0.6-1.3); POTASSIUM 4.7 mmol/L (3.5-5.1); TOTAL PROTEIN, SERUM 5.6 g/dL (6.4-8.2)
[2022-05-14 16:02] VITALS: BP 118/33
--- NOTE | 2022-05-14 18:44 | NUR ---
0730-Rec'd patient in bed, asleep,able to wake up on verbal commands. Patient denies any pain. No respiratory distress noted; on R/A and sandy well. Skin W/D to the touch, afebrile. Oral fluids encouraged as sandy and taken well. Safety measures in place and call light at reach. 0900-Scheduled medication administered as ordered with no ASE noted. Oral fluids taken well, patient able to consumed 50% of her breakfast, denies GI discomfort, no N/V noted. Routine care provided, repositioned for comfort and pressure relief. 1000-Patient OOB on W/C to her therapy session as scheduled. Patient does appear sleepy and tired. When asked patient if she had a good night sleep, patient stated, "I am tired and sleepy" Patients VS checked and stable, documented on [employer] VS log tab. 1330-Patient noted with BP low, continues to state she is "tired" skin appears pale/yellowish. Notified Dr. Lorenzo and obtained orders for CBC, CMP, UACS. Labs drawn right away, urine still pending to collect due to patient voided/incontinent. 1745-CBC, CMP results rec'd with a Hgb-7.7 and values relayed to Dr. Lorenzo along with other abnormal levels. Per Dr. Lorenzo, place patient on NPO, Protonix 40mg Q12hrs IV, 1 unit PRBC transfusion, CBC Q4hrs till tomorrow when he sees patient. All orders noted and carried out. (verified with charge nurse). Called lab and spoke to Dayana. 1800-Patient's /RR visiting patient and consent obtained for blood transfusion. Endorsed properly to incoming relieving warehouse supervisor 3rd shift licensed for proper follow up.
[2022-05-14 19:11] LABS: HEMATOCRIT 25.3 % (31.2-41.9); MEAN CORPUSCULAR HEMOGLOBIN 24.7 uug (24.7-32.8); MEAN CORPUSCULAR VOLUME 78.2 fL (75.5-95.3); PLATELET COUNT (AUTO) 649 K/uL (179-408)
[2022-05-14 19:13] LABS: *BILIRUBIN,URIN NEGATIVE (NEGATIVE); *BLOOD, URINE 2+ (NEGATIVE); *CLARITY,URINE CLEAR (CLEAR); *COLOR,URINE YELLOW (YELLOW); *KETONES,URINE 1+ (NEGATIVE); *UROBILINOGEN,URINE 0.2 E.U./dl (NORMAL); LEUKOCYTE ESTERASE ,URINE 1+ (NEGATIVE); NITRITE, URINE NEGATIVE (NEGATIVE); PH,URINE 5.5 (5.0-8.0); UGLUCOSE NEGATIVE (NEGATIVE)
[2022-05-14 20:10] VITALS: BP 131/59
--- NOTE | 2022-05-14 20:35 | NUR ---
fingerstick done patient blood glucose 150.
--- NOTE | 2022-05-14 20:45 | NUR ---
due po medication given with applesauce and w/ sips of water patient able to swallow mediation as a whole pill no need to crushed pill .hob up aspiration precaution observed.advised patient to call for help call light placed with in reach .
[2022-05-14] MEDS: INSULIN GLARGINE,HUM 300 UNITS/3 ML CARTRIDGE SQ SCH (21:00)
--- NOTE | 2022-05-14 21:30 | NUR ---
fingerstick done 150 no insulin given patient NPO .
[2022-05-14] MEDS: ESCITALOPRAM OXALATE 10 MG TABLET PO SCH (21:32)
[2022-05-14] MEDS: ATORVASTATIN 10 MG TABLET PO SCH (21:32)
[2022-05-14] MEDS: PANTOPRAZOLE SODIUM 40 MG VIAL IV SCH (21:35)
[2022-05-14 22:15] VITALS: BP 149/35
--- NOTE | 2022-05-14 22:15 | NUR ---
started 1 UNIT of PRBC patient signed consent and aware shes getting blood transfusion blood checked and verified with another RN.v/s done and follow blood transfusion protocol .
[2022-05-14] MEDS: OXYCODONE HCL 5 MG TABLET PO PRN (22:24)
--- NOTE | 2022-05-14 22:24 | NUR ---
patient called and requesting for pain medication she said her knees hurting and her hips and back 7/10 given prn OXYIR pain medication . patient took medication with applesauce and sip of water .
[2022-05-14 22:30] VITALS: BP 114/31
--- NOTE | 2022-05-14 22:45 | NUR ---
with cnas help turned and reposition patient offloaded back with pillows ,bue and ble elevated with pillows heels off bed .
[2022-05-15 02:00] VITALS: BP 135/34
--- NOTE | 2022-05-15 02:00 | NUR ---
PRBC COMPLETED NO BLOOD TRANSFUSION REACTION VERBALIZED OR NOTED . V/S DONE TEMP 98.7 ORALLY ,HR 58 BP 135/34 SATURATION 97 RR 18.PATENT SLEEPING EASILY AROUSABLE NO RESPIRATORY DISTRESS BREATHING EVEN AND UNLABORED .
[2022-05-15 04:28] LABS: HEMATOCRIT 28.9 % (31.2-41.9); MEAN CORPUSCULAR HEMOGLOBIN 25.8 uug (24.7-32.8); MEAN CORPUSCULAR VOLUME 78.2 fL (75.5-95.3); PLATELET COUNT (AUTO) 529 K/uL (179-408)
[2022-05-15 04:40] VITALS: BP 135/35
[2022-05-15] MEDS: OXYCODONE HCL 10 MG TAB.SR.12H PO SCH ×3 (05:48→22:31)
[2022-05-15] MEDS: BLOOD SUGAR DIAGNOSTIC 1 EACH STRIP VI SCH ×4 (06:39→21:35)
[2022-05-15 07:45] VITALS: BP 138/40
[2022-05-15] MEDS: GLUCERNA SHAKE 237 ML CAN PO SCH ×3 (08:00→17:10)
[2022-05-15 08:34] LABS: HEMATOCRIT 27.2 % (31.2-41.9); MEAN CORPUSCULAR HEMOGLOBIN 25.7 uug (24.7-32.8); MEAN CORPUSCULAR VOLUME 78.2 fL (75.5-95.3); PLATELET COUNT (AUTO) 540 K/uL (179-408)
[2022-05-15] MEDS ORDERED: IV D5/ 0.9% NACL 1,000 ML IV PRN (08:45)
[2022-05-15] MEDS: DOCUSATE SODIUM 100 MG CAPSULE PO SCH ×2 (10:33→20:55)
[2022-05-15] MEDS: PANTOPRAZOLE SODIUM 40 MG VIAL IV SCH ×2 (10:33→20:55)
[2022-05-15] MEDS: PRIMIDONE 50 MG TABLET PO SCH ×2 (10:34→17:04)
[2022-05-15] MEDS: MIRALAX 17 GM POWD.PACK PO SCH (10:34)
[2022-05-15] MEDS: FERROUS GLUCONATE 324 MG TABLET PO SCH (10:34)
[2022-05-15] MEDS: ACIDOPHILUS/BULGARICUS CHEW TAB PO SCH ×2 (10:34→20:56)
[2022-05-15] MEDS: REMEDY ESSENTIAL ZINC PASTE 113 GM TOP SCH ×2 (10:35→20:57)
[2022-05-15] MEDS: VALSARTAN 80 MG TABLET PO SCH ×2 (10:39→20:57)
[2022-05-15] MEDS: PROPRANOLOL HCL 40 MG TABLET PO SCH ×2 (10:39→21:00)
[2022-05-15] MEDS: AMLODIPINE 10 MG TABLET PO SCH (10:40)
[2022-05-15] MEDS: CEphaleXIN 500 MG CAPSULE PO SCH ×2 (10:53→20:57)
--- NOTE | 2022-05-15 11:11 | NUR ---
INTERDISCIPLINARY TEAM CONFERENCE
[2022-05-15] MEDS: INSULIN REGULAR, HUMAN 300 UNIT/3 ML VIAL SQ PRN ×3 (12:03→21:32)
[2022-05-15 12:11] LABS: MEAN CORPUSCULAR HEMOGLOBIN 25.2 uug (24.7-32.8); MEAN CORPUSCULAR VOLUME 78.3 fL (75.5-95.3); PLATELET COUNT (AUTO) 578 K/uL (179-408)
--- NOTE | 2022-05-15 14:56 | NUR ---
RN CALLED LAB AND CONNECTED WITH [facility]. LAB STATES THEY WILL CALL BACK. RN ON STANDBY. PLAN OF CARE CONTINUES. Addendum: 05/15/22 at 1457 by NIGEL PHAM RN Amended: Links added.
[2022-05-15 15:12] VITALS: BP 122/40
[2022-05-15 16:08] LABS: MEAN CORPUSCULAR HEMOGLOBIN 25.7 uug (24.7-32.8); MEAN CORPUSCULAR VOLUME 78.1 fL (75.5-95.3); PLATELET COUNT (AUTO) 542 K/uL (179-408)
--- NOTE | 2022-05-15 19:39 | NUR ---
RECEIVED REPORT FROM KASSANDRA MUNOZ, ALANNAH JOSEPH. PATIENT IS ALERT & ORIENTED X4, AND ABLE TO SPEAK LITHUANIAN. VITAL SIGNS STABLE. PATIENT TOLERATES PO MEDICATIONS AND DIET WELL. PATIENT HAS COMPLAINT OF PAIN. RN GAVE MEDICATIONS ORDERED BY MD. PATIENT EXPRESSED A RELIEF OF SOME PAIN. PATIENT PARTICIPATES WITH PHYSICAL AND OCCUPATIONAL THERAPY SCHEDULED. IV REMAINS PATENT. SALINE LOCKED. NO SIGNS AND SYMPTOMS OF HYPOGLYCEMIA. CALL LIGHT WITHIN REACH. FALL PRECAUTIONS OBSERVED. WOUND CARE COMPLETED. NO ACUTE DISTRESS. ALL NEEDS MET AT THIS TIME. ENDORSED CARE TO KASSANDRA GARZA, ALANNAH JOSEPH FOR CONTINUATION OF CARE. Addendum: 05/15/22 at 1952 by NIGEL PHAM RN PLEASE NOTE: RN RECEIVED REPORT FROM KASSANDRA BERRIOS, ALANNAH JOSEPH PRIOR.
--- NOTE | 2022-05-15 19:49 | NUR ---
RECD PT IN BED,ALERT AND ORIENTED X4, NO DISTRESS NOTED.RESTING COMFORTABLY.
[2022-05-15 20:00] VITALS: BP 133/52
[2022-05-15 20:08] LABS: HEMATOCRIT 26.6 % (31.2-41.9); MEAN CORPUSCULAR HEMOGLOBIN 25.3 uug (24.7-32.8); MEAN CORPUSCULAR VOLUME 78.9 fL (75.5-95.3); PLATELET COUNT (AUTO) 551 K/uL (179-408)
[2022-05-15] MEDS: ESCITALOPRAM OXALATE 10 MG TABLET PO SCH (20:55)
[2022-05-15] MEDS: ATORVASTATIN 10 MG TABLET PO SCH (20:56)
[2022-05-15] MEDS: INSULIN GLARGINE,HUM 300 UNITS/3 ML CARTRIDGE SQ SCH (21:34)
[2022-05-15] MEDS: BISACODYL 10 MG SUPP.RECT RC PRN (22:04)
[2022-05-15] MEDS: ACETAMINOPHEN 325 MG TABLET PO PRN (22:04)
[2022-05-16 04:00] VITALS: BP 136/49
[2022-05-16 04:26] LABS: HEMATOCRIT 26.7 % (31.2-41.9); MEAN CORPUSCULAR HEMOGLOBIN 25.7 uug (24.7-32.8); MEAN CORPUSCULAR VOLUME 78.7 fL (75.5-95.3); PLATELET COUNT (AUTO) 551 K/uL (179-408)
[2022-05-16] MEDS: OXYCODONE HCL 10 MG TAB.SR.12H PO SCH ×3 (05:14→21:05)
[2022-05-16] MEDS: INSULIN REGULAR, HUMAN 300 UNIT/3 ML VIAL SQ PRN ×3 (06:08→17:21)
[2022-05-16] MEDS: BLOOD SUGAR DIAGNOSTIC 1 EACH STRIP VI SCH ×4 (06:08→21:00)
[2022-05-16 07:40] VITALS: BP 137/42
[2022-05-16] MEDS: GLUCERNA SHAKE 237 ML CAN PO SCH ×3 (08:37→17:07)
[2022-05-16] MEDS: MIRALAX 17 GM POWD.PACK PO SCH (08:41)
[2022-05-16] MEDS: DOCUSATE SODIUM 100 MG CAPSULE PO SCH ×2 (08:41→20:48)
[2022-05-16] MEDS: PROPRANOLOL HCL 40 MG TABLET PO SCH ×2 (08:41→20:47)
[2022-05-16] MEDS: PRIMIDONE 50 MG TABLET PO SCH ×2 (08:41→17:07)
[2022-05-16] MEDS: ACIDOPHILUS/BULGARICUS CHEW TAB PO SCH ×2 (08:41→20:47)
[2022-05-16] MEDS: AMLODIPINE 10 MG TABLET PO SCH (08:42)
[2022-05-16] MEDS: CEphaleXIN 500 MG CAPSULE PO SCH ×2 (08:42→20:48)
[2022-05-16] MEDS: VALSARTAN 80 MG TABLET PO SCH ×2 (08:42→20:48)
[2022-05-16] MEDS: FERROUS GLUCONATE 324 MG TABLET PO SCH (08:43)
[2022-05-16] MEDS: REMEDY ESSENTIAL ZINC PASTE 113 GM TOP SCH ×2 (08:44→21:00)
[2022-05-16] MEDS: PANTOPRAZOLE SODIUM 40 MG VIAL IV SCH ×2 (08:44→20:47)
--- NOTE | 2022-05-16 12:14 | NUR ---
0700-Rec'd patient in bed, sleep, on R/A, no respiratory distress noted. Patient able to wake up on verbal commands/tactile stimuli, denies pain. Appears comfortable. LT hand G 20" IV flushing well. Call light within reach, encouraged to use it for help every time needed with good understanding. 0900-Scheduled medication administered with no ASE noted; Oral fluids taken as offered. 1000-OOB to rehab for her therapy session. 1130-FS for BS checks pofg=[id number], insulin SS administered as ordered. No s/s of hypo/hyperglycemia.
[2022-05-16 16:45] VITALS: BP 109/36
--- NOTE | 2022-05-16 19:24 | NUR ---
ASSISTED PATIENT WITH HER ADLS THROUGH OUT THE SHIFT/ NEEDED. NO UNUSUAL FINDINGS OR CRISTAL, CARE PROVIDED AT ROUTINE INTERVALS AND NEEDED. ALL NEEDS MET.
[2022-05-16 20:00] VITALS: BP 146/37
[2022-05-16] MEDS: INSULIN GLARGINE,HUM 300 UNITS/3 ML CARTRIDGE SQ SCH (20:42)
[2022-05-16] MEDS: ESCITALOPRAM OXALATE 10 MG TABLET PO SCH (20:47)
[2022-05-16] MEDS: ATORVASTATIN 10 MG TABLET PO SCH (20:48)
[2022-05-17] MEDS: OXYCODONE HCL 5 MG TABLET PO PRN (02:54)
[2022-05-17] MEDS: OXYCODONE HCL 10 MG TAB.SR.12H PO SCH ×3 (06:36→21:12)
[2022-05-17] MEDS: BLOOD SUGAR DIAGNOSTIC 1 EACH STRIP VI SCH ×4 (06:56→21:07)
--- NOTE | 2022-05-17 07:27 | NUR ---
REPORT GIVEN TO KASSANDRA ALLEN
--- NOTE | 2022-05-17 07:34 | NUR ---
0700-Patient in bed, asleep, on R/A, no respiratory distress noted, afebrile. Patient denies pain, repositioned for comfort. Safety measures in place & call light at reach.
[2022-05-17] MEDS: GLUCERNA SHAKE 237 ML CAN PO SCH ×3 (08:02→17:08)
[2022-05-17] MEDS: PANTOPRAZOLE SODIUM 40 MG VIAL IV SCH (08:43)
[2022-05-17] MEDS: MIRALAX 17 GM POWD.PACK PO SCH (08:44)
[2022-05-17] MEDS: DOCUSATE SODIUM 100 MG CAPSULE PO SCH ×2 (08:44→20:29)
[2022-05-17] MEDS: PRIMIDONE 50 MG TABLET PO SCH ×2 (08:44→16:23)
[2022-05-17] MEDS: ACIDOPHILUS/BULGARICUS CHEW TAB PO SCH ×2 (08:44→20:29)
[2022-05-17] MEDS: FERROUS GLUCONATE 324 MG TABLET PO SCH (08:45)
[2022-05-17] MEDS: CEphaleXIN 500 MG CAPSULE PO SCH ×2 (08:58→20:30)
[2022-05-17] MEDS: VALSARTAN 80 MG TABLET PO SCH ×2 (09:13→09:14)
[2022-05-17] MEDS: AMLODIPINE 10 MG TABLET PO SCH ×2 (09:13→09:14)
[2022-05-17] MEDS: PROPRANOLOL HCL 40 MG TABLET PO SCH ×2 (09:13→09:14)
[2022-05-17] MEDS: REMEDY ESSENTIAL ZINC PASTE 113 GM TOP SCH ×2 (09:15→20:30)
--- NOTE | 2022-05-17 10:19 | NUR ---
0900-Scheduled medications administered as ordered except for: Amlodipine 10mg, Inderal 40mg & Valsartan 80mg due to low bp and pulse. Patient denies lightheadedness or dizziness/nausea/vomiting. MD Lorenzo was informed of patient's low bp and pulse and also of patient's poor appetite and possible signs of depression. Per Dr Lorenzo ok for a psych consult to further address patient's depression symptoms. 929-Dr. Diop, psychiatrist marvel. patient and prescribed Remeron 15mg with instructions not to administer till consent is obtained., Consent still pending. Encouraged patient to eat and assist with her meals.
--- NOTE | 2022-05-17 11:28 | NUR ---
PATIENT WAS SEEN BY WOUND CONSULT WITH ORDERS FOR ABDOMINAL INFECTED SURGICAL WOUND AND LEFT BUTTOCKS OPENED BLISTER. PICTURES UPDATED. Addendum: 05/17/22 at 1132 by ALEJANDRO CEBALLOS RN INCORRECT DOCUMENTATION.
[2022-05-17 11:30] VITALS: BP 126/40
[2022-05-17 15:15] VITALS: BP 122/40
[2022-05-17] MEDS: PANTOPRAZOLE SODIUM 40 MG TABLET.DR PO SCH (16:23)
[2022-05-17] MEDS: INSULIN REGULAR, HUMAN 300 UNIT/3 ML VIAL SQ PRN ×2 (16:37→21:10)
--- NOTE | 2022-05-17 19:21 | NUR ---
Patient in her bed, awake, alert and oriented. Patient kept free of pain during shift. Repositioned Q2Hrs to promote comfort and facilitate pressure relief. Patient requires of ext assist with ADLS, Care provided at routine intervals and as needed. Needs anticipated and met during shift. Endorsed properly to incoming relieving night shift manager licensed.
[2022-05-17 20:13] VITALS: BP 157/47
[2022-05-17] MEDS: ATORVASTATIN 10 MG TABLET PO SCH (20:29)
[2022-05-17] MEDS: MIRTAZAPINE 15 MG TABLET PO SCH (20:29)
[2022-05-17] MEDS: INSULIN GLARGINE,HUM 300 UNITS/3 ML CARTRIDGE SQ SCH (21:09)
[2022-05-18 04:13] VITALS: BP 134/67
[2022-05-18 04:18] LABS: HEMATOCRIT 30.4 % (31.2-41.9); MEAN CORPUSCULAR HEMOGLOBIN 25.1 uug (24.7-32.8); MEAN CORPUSCULAR VOLUME 79.9 fL (75.5-95.3); PLATELET COUNT (AUTO) 653 K/uL (179-408)
[2022-05-18 04:44] LABS: CARBON DIOXIDE 32 mmol/L (21-32); CHLORIDE 100 mmol/L (98-107); CREATININE 0.5 mg/dL (0.6-1.3); GLUCOSE 72 mg/dL (74-106); POTASSIUM 3.8 mmol/L (3.5-5.1); UREA NITROGEN, BLOOD 12 mg/dL (7-18)
[2022-05-18] MEDS: PANTOPRAZOLE SODIUM 40 MG TABLET.DR PO SCH ×2 (06:01→17:27)
[2022-05-18] MEDS: OXYCODONE HCL 10 MG TAB.SR.12H PO SCH ×3 (06:01→21:20)
[2022-05-18] MEDS: BLOOD SUGAR DIAGNOSTIC 1 EACH STRIP VI SCH ×4 (06:37→20:41)
[2022-05-18 08:15] VITALS: BP 139/42
[2022-05-18] MEDS: VALSARTAN 80 MG TABLET PO SCH ×2 (09:00→20:23)
[2022-05-18] MEDS: PRIMIDONE 50 MG TABLET PO SCH ×2 (09:38→17:27)
[2022-05-18] MEDS: ACIDOPHILUS/BULGARICUS CHEW TAB PO SCH ×2 (09:38→20:23)
[2022-05-18] MEDS: MIRALAX 17 GM POWD.PACK PO SCH (09:38)
[2022-05-18] MEDS: DOCUSATE SODIUM 100 MG CAPSULE PO SCH ×2 (09:38→20:23)
[2022-05-18] MEDS: PROPRANOLOL HCL 40 MG TABLET PO SCH ×2 (09:38→20:24)
[2022-05-18] MEDS: REMEDY ESSENTIAL ZINC PASTE 113 GM TOP SCH ×2 (09:39→20:24)
[2022-05-18] MEDS: GLUCERNA SHAKE 237 ML CAN PO SCH ×3 (09:39→17:19)
[2022-05-18] MEDS: FERROUS GLUCONATE 324 MG TABLET PO SCH (09:43)
--- NOTE | 2022-05-18 11:59 | NUR ---
BS 125. No coverage need. Patient is stable. She is calm and relaxed. Denies pain when asked. Tylenol given 0900, patient walked with PT. normal air movement with no distress noted. Sn, will continue to monitor.
[2022-05-18 16:05] VITALS: BP 125/42
--- NOTE | 2022-05-18 16:33 | NUR ---
Patient comfortable currently. BS 122. No coverage needed. Will continue to monitor.
--- NOTE | 2022-05-18 18:08 | NUR ---
Dressing changed on left buttocks, pt tolerated well.
[2022-05-18] MEDS: MIRTAZAPINE 15 MG TABLET PO SCH (20:24)
[2022-05-18] MEDS: ATORVASTATIN 10 MG TABLET PO SCH (20:24)
[2022-05-18 20:34] VITALS: BP 115/47
[2022-05-18] MEDS: INSULIN GLARGINE,HUM 300 UNITS/3 ML CARTRIDGE SQ SCH (20:42)
[2022-05-18] MEDS: INSULIN REGULAR, HUMAN 300 UNIT/3 ML VIAL SQ PRN (20:42)
[2022-05-19 04:00] VITALS: BP 135/43
[2022-05-19 04:18] LABS: HEMATOCRIT 28.5 % (31.2-41.9); MEAN CORPUSCULAR HEMOGLOBIN 24.9 uug (24.7-32.8); MEAN CORPUSCULAR VOLUME 80.4 fL (75.5-95.3); PLATELET COUNT (AUTO) 617 K/uL (179-408)
[2022-05-19 04:25] LABS: CREATININE 0.6 mg/dL (0.6-1.3); POTASSIUM 3.8 mmol/L (3.5-5.1)
[2022-05-19] MEDS: OXYCODONE HCL 10 MG TAB.SR.12H PO SCH ×3 (05:46→21:59)
[2022-05-19] MEDS: PANTOPRAZOLE SODIUM 40 MG TABLET.DR PO SCH ×2 (06:01→16:14)
[2022-05-19] MEDS: BLOOD SUGAR DIAGNOSTIC 1 EACH STRIP VI SCH ×4 (06:19→22:00)
[2022-05-19 07:40] VITALS: BP 124/38
[2022-05-19] MEDS: VALSARTAN 80 MG TABLET PO SCH ×2 (08:45→08:52)
[2022-05-19] MEDS: PROPRANOLOL HCL 40 MG TABLET PO SCH ×2 (08:45→08:52)
[2022-05-19] MEDS: DOCUSATE SODIUM 100 MG CAPSULE PO SCH ×2 (08:50→21:55)
[2022-05-19] MEDS: GLUCERNA SHAKE 237 ML CAN PO SCH ×3 (08:50→17:03)
[2022-05-19] MEDS: ACIDOPHILUS/BULGARICUS CHEW TAB PO SCH ×2 (08:52→21:55)
[2022-05-19] MEDS: PRIMIDONE 50 MG TABLET PO SCH ×2 (08:52→16:14)
[2022-05-19] MEDS: AMLODIPINE 10 MG TABLET PO SCH ×2 (08:52→08:59)
[2022-05-19] MEDS: FERROUS GLUCONATE 324 MG TABLET PO SCH (08:52)
[2022-05-19] MEDS: MIRALAX 17 GM POWD.PACK PO SCH (08:52)
[2022-05-19] MEDS: REMEDY ESSENTIAL ZINC PASTE 113 GM TOP SCH ×2 (09:36→22:00)
--- NOTE | 2022-05-19 10:43 | NUR ---
0700-SHE IS A/O *4. HER PRESCRIBED MEDICATION ADMINISTERED. PATIENT SWALLOWS EASILY. SHE DENIED PAIN. PATIENT WALKED WITH PT. PATIENT REPOSITIONED FOR COMFORT. CALL LIGHT WITHIN REACHED
[2022-05-19] MEDS: INSULIN REGULAR, HUMAN 300 UNIT/3 ML VIAL SQ PRN (11:42)
[2022-05-19 16:00] VITALS: BP 107/62
[2022-05-19] MEDS: OXYCODONE HCL 5 MG TABLET PO PRN (18:37)
--- NOTE | 2022-05-19 19:09 | NUR ---
Assisted patient with ADLs/personal care/hygiene through out the shift. Assisted patient to set up her meal tray and assisted with feeding. Patient continues with poor oral intake and continues on antidepressant medication Remeron as ordered. Oral fluids encouraged as sandy and taken well. No N/V noted. Incontinent of both, care provided at routine intervals and PRN. Repositioned Q2hrs for comfort and pressure relief. Endorsed to scene shifter relieving RN.
[2022-05-19 20:30] VITALS: BP 131/50
[2022-05-19] MEDS: MIRTAZAPINE 15 MG TABLET PO SCH (21:55)
[2022-05-19] MEDS: ATORVASTATIN 10 MG TABLET PO SCH (21:55)
[2022-05-19] MEDS: INSULIN GLARGINE,HUM 300 UNITS/3 ML CARTRIDGE SQ SCH (22:03)
[2022-05-20 04:21] VITALS: BP 127/50
[2022-05-20] MEDS: PANTOPRAZOLE SODIUM 40 MG TABLET.DR PO SCH ×2 (06:41→16:52)
[2022-05-20] MEDS: OXYCODONE HCL 10 MG TAB.SR.12H PO SCH ×3 (06:42→21:58)
[2022-05-20] MEDS: BLOOD SUGAR DIAGNOSTIC 1 EACH STRIP VI SCH ×4 (07:12→20:34)
--- NOTE | 2022-05-20 07:30 | NUR ---
REPORT GIVEN TO KASSANDRA MANNING
[2022-05-20 07:38] VITALS: BP 140/41
[2022-05-20] MEDS: GLUCERNA SHAKE 237 ML CAN PO SCH ×3 (10:26→16:52)
[2022-05-20] MEDS: ACIDOPHILUS/BULGARICUS CHEW TAB PO SCH ×2 (10:26→20:17)
[2022-05-20] MEDS: PROPRANOLOL HCL 40 MG TABLET PO SCH ×2 (10:27→21:00)
[2022-05-20] MEDS: DOCUSATE SODIUM 100 MG CAPSULE PO SCH ×2 (10:29→21:56)
[2022-05-20] MEDS: AMLODIPINE 10 MG TABLET PO SCH (10:29)
[2022-05-20] MEDS: PRIMIDONE 50 MG TABLET PO SCH ×2 (10:29→16:52)
[2022-05-20] MEDS: MIRALAX 17 GM POWD.PACK PO SCH (10:30)
[2022-05-20] MEDS: FERROUS GLUCONATE 324 MG TABLET PO SCH (10:30)
[2022-05-20] MEDS: VALSARTAN 80 MG TABLET PO SCH ×2 (10:30→21:00)
[2022-05-20] MEDS: REMEDY ESSENTIAL ZINC PASTE 113 GM TOP SCH ×2 (10:31→20:17)
[2022-05-20] MEDS: INSULIN REGULAR, HUMAN 300 UNIT/3 ML VIAL SQ PRN ×2 (11:58→20:35)
[2022-05-20 15:45] VITALS: BP 109/40
--- NOTE | 2022-05-20 19:51 | NUR ---
RECEIVED REPORT FROM KASSANDRA ABARCA, ALANNAH SHIFT. PATIENT IS ALERT & ORIENTED X4, AND ABLE TO SPEAK FRISIAN. VITAL SIGNS STABLE. PATIENT TOLERATES PO MEDICATIONS AND DIET WELL. PATIENT HAS COMPLAINT OF PAIN. RN GAVE MEDICATIONS ORDERED BY MD. PATIENT EXPRESSED A RELIEF OF SOME PAIN. PATIENT PARTICIPATES WITH PHYSICAL AND OCCUPATIONAL THERAPY SCHEDULED. IV REMOVED. IV NOT PATENT. CATHETER TIP INTACT. NO SIGNS AND SYMPTOMS OF HYPOGLYCEMIA. CALL LIGHT WITHIN REACH. FALL PRECAUTIONS OBSERVED. WOUND CARE COMPLETED. NO ACUTE DISTRESS. ALL NEEDS MET AT THIS TIME. ENDORSED CARE TO MADDIE DICKERSON, ALANNAH SHIFT FOR CONTINUATION OF CARE.
[2022-05-20 20:00] VITALS: BP 119/44
[2022-05-20] MEDS: ATORVASTATIN 10 MG TABLET PO SCH (20:17)
[2022-05-20] MEDS: MIRTAZAPINE 15 MG TABLET PO SCH (20:17)
[2022-05-20] MEDS: INSULIN GLARGINE,HUM 300 UNITS/3 ML CARTRIDGE SQ SCH (20:34)
[2022-05-21 04:00] VITALS: BP 113/55
[2022-05-21] MEDS: OXYCODONE HCL 10 MG TAB.SR.12H PO SCH ×2 (05:40→13:47)
[2022-05-21] MEDS: ACETAMINOPHEN 325 MG TABLET PO PRN (05:41)
[2022-05-21] MEDS: PANTOPRAZOLE SODIUM 40 MG TABLET.DR PO SCH (06:26)
[2022-05-21] MEDS: BLOOD SUGAR DIAGNOSTIC 1 EACH STRIP VI SCH ×2 (06:38→11:25)
[2022-05-21 07:57] VITALS: BP 137/45
[2022-05-21] MEDS: GLUCERNA SHAKE 237 ML CAN PO SCH ×2 (08:50→12:55)
[2022-05-21] MEDS: FERROUS GLUCONATE 324 MG TABLET PO SCH (08:50)
[2022-05-21 08:51] VITALS: BP 137/45
[2022-05-21] MEDS: PROPRANOLOL HCL 40 MG TABLET PO SCH (08:51)
[2022-05-21] MEDS: DOCUSATE SODIUM 100 MG CAPSULE PO SCH (08:51)
[2022-05-21] MEDS: VALSARTAN 80 MG TABLET PO SCH (08:51)
[2022-05-21] MEDS: AMLODIPINE 10 MG TABLET PO SCH (08:51)
[2022-05-21] MEDS: PRIMIDONE 50 MG TABLET PO SCH (08:51)
[2022-05-21] MEDS: ACIDOPHILUS/BULGARICUS CHEW TAB PO SCH (08:51)
[2022-05-21] MEDS: REMEDY ESSENTIAL ZINC PASTE 113 GM TOP SCH (08:52)
[2022-05-21] MEDS: MIRALAX 17 GM POWD.PACK PO SCH (08:52)
--- NOTE | 2022-05-21 09:37 | NUR ---
0700-Recd patient in bed, awake, alert and oriented, able to verbalize her needs & follow simple directions. Patient denies pain, no acute respiratory distress noted. Safety measures in place and call light at reach. 0900-Scheduled medications administered, no ASE noted, oral fluids taken well. Patient still eating her breakfast, denies GI discomfort. Supervision and assist provided as needed. 0940-Patient ambulating in hallway with PT, using FWW, actively involved in her therapy.. Patient to be DC home today by 2pm.
[2022-05-21] MEDS: INSULIN REGULAR, HUMAN 300 UNIT/3 ML VIAL SQ PRN (11:20)
--- NOTE | 2022-05-21 15:23 | NUR ---
Patient was picked up by [facility] ambulance at this time. Patient is alert and oriented. Patient states gratitude towards staff at hospital for the services/hospitality, patient states to be happy to be going home now. Patient able to get up from bed with one person's assist and onto the gurney. No c/o pain/respiratory distress noted. No s/s of hypo/hyperglycemia or hypo/HTN. All DC paperwork given, DC MD written orders, inventory list signed and all belongings taken home/including husain and vases. Medication brought from home was picked up from pharmacy and returned/taken by patient.
== END 2022-05-21 15:30 | disposition home health service (06) | DRG 559 ==
PROVIDERS: ADMIT Physical Medicine & Rehabilitation Pain Medicine; ATTEND Physical Medicine & Rehabilitation Pain Medicine
PROC: 30233N1 Transfusion of Nonautologous Red Blood Cells into Peripheral Vein, Percutaneous Approach (ICD-10-PCS; principal; 2022-05-14)
DX: S72.032D Displaced midcervical fracture of left femur, subsequent encounter for closed fracture with routine healing (principal); E43 Unspecified severe protein-calorie malnutrition; D68.59 Other primary thrombophilia; N39.0 Urinary tract infection, site not specified; F33.1 Major depressive disorder, recurrent, moderate; E87.1 Hypo-osmolality and hyponatremia; N17.9 Acute kidney failure, unspecified; E11.9 Type 2 diabetes mellitus without complications; E66.9 Obesity, unspecified; E78.5 Hyperlipidemia, unspecified; I10 Essential (primary) hypertension; I25.10 Atherosclerotic heart disease of native coronary artery without angina pectoris; Z98.61 Coronary angioplasty status; W18.30XD Fall on same level, unspecified, subsequent encounter; R41.0 Disorientation, unspecified; B96.20 Unspecified Escherichia coli [E. coli] as the cause of diseases classified elsewhere; D64.9 Anemia, unspecified; E83.42 Hypomagnesemia; E83.51 Hypocalcemia; I11.9 Hypertensive heart disease without heart failure; Z20.822 Contact with and (suspected) exposure to COVID-19; Z96.642 Presence of left artificial hip joint; Z68.26 Body mass index [BMI] 26.0-26.9, adult; M16.12 Unilateral primary osteoarthritis, left hip; T40.2X5A Adverse effect of other opioids, initial encounter; Y92.230 Patient room in hospital as the place of occurrence of the external cause
CPT/HCPCS: 36415; 70030-TC; 71045; 73501; 73502; 82652; 83550; 83735; 84100; 84443; 85025; 86850; 86900; 86901; 86920; 97535-GO-CO; A4663; A6209; A6213; C9113; J0696; J1644; J1815; J3475; P9016